=== PATIENT | female | born 1955 | race American Indian/Alaskan Native ===

== ENCOUNTER → 2016-06-23 | Outpatient (CLI) | payer OTHER ==
--- NOTE | 2016-06-23 13:13 | DX ---
Chest, Two Views at 1207 hours History: Shortness of breath. Comparison: None. Findings: Cardiac silhouette is within normal range. Hyperinflation bilateral upper lobes consistent with emphysema. No pneumonia, congestive heart failure, pleural effusion, or pneumothorax. Impression: 1. Emphysema. 2. No focal pneumonia. 3. Consider screening CT chest.
== END ==
LOC: BRMIMAGING 11:52
PROVIDERS: ATTEND Family Medicine
DX: J43.9 Emphysema, unspecified (principal)
CPT/HCPCS: 71020-PO